=== PATIENT | female | born 1950 | race Caucasian/White ===

== ENCOUNTER → 2016-11-21 | Day surgery (SDC) | payer OTHER ==
[~2016-11-21] VITALS: Ht 152.4 cm; Wt 77.1 kg
[~2016-11-21] MED LIST: ASPIR 8181 MG PO; CALCIUM 600600 M1 PO; HCTZ/LISINOPRIL1 TA1 PO; LISINOPRIL10 M1 PO; MOBIC7.5 MG PO; PAROXETINE HCL20 M1 PO; PAXIL10 MG PO; PERCOCET 5-3251 EACH PO; PROAIR HFA0.09 MG/Ac INH; ROBITUSSIN W/CO10 ML PO; SIMVASTATIN20 MG PO; SYNTHROID88 MCG PO; VANCOMYCIN125 MG/2.5 PO; VITAMIN D32000 I1 PO
--- NOTE | 2016-11-28 18:45 | Operative Report ---
Operative/Inv Procedure Report Surgery Date: 11/21/16 Name of Procedure: Laparoscopic cholecystectomy Pre-Operative Diagnosis: Biliary colic Post-Operative Diagnosis: Same Estimated Blood Loss: scant Surgeon/Director Of Leadership Development: GUERO RICE,DRE Montero PAC Anesthesia: general endotracheal tube IV Fluids: 1800 mls Drains: None Specimens: Gallbladder with stones Complications: None Condition: Excellent stable Operative Indication: Anabel is a 66-year-old female who recently underwent laparoscopic repair of an incarcerated incisional hernia with mesh. She's had several episodes of severe biliary colic most recently leading to an ER visit from which she was able to be discharged home. After recovering from her hernia repair, we have been planning a cholecystectomy which hopefully can be achieved laparoscopically with access superior to the mesh in the epigastrium. It will will require some novel port placements given the mesh. She presents for this cholecystectomy today. Operative/Procedure Note Note: The patient is taken to the operating room placed on the operating table in supine position. Following an awake timeout, placement of Venodyne boots and with her arms extended out to the side she underwent an uneventful induction of general endotracheal anesthesia. She received IV antibiotics and the abdomen was then prepped widely with DuraPrep and draped usual sterile fashion including Ioban. Now local anesthesia was infiltrated in the epigastrium just subxiphoid where a vertical incision was then made and carried down to the fascia. The fascia was opened vertically to expose the preperitoneal fat which was then incised with the Bovie angling slightly to the right again to gain entry through the falciform ligament into the peritoneal cavity. A 10 mm Mayes port was placed and pneumoperitoneum achieved. A 5 mm 30 scope was now inserted and I could see the right adhesions as expected along the margins of the mesh. The right side was free to accept ports placed two 5 mm working ports after infiltrating local anesthetic. A third 5 mm port was now placed to the left of midline lateral to the edge of the mesh. This proved preceded by infiltration of local anesthetic. We did perform some lysis of adhesions around the margins of the upper portion of the mesh so as to have an unobstructed view and ease of the instrumentation. Now the patient was placed in reverse Trendelenburg position. There adhesions of the colon in the right upper quadrant and these were taken down such that we could now visualize the gallbladder. Care was taken in doing so so as not to injure the colon or blood supply. Most of this was done with the hook cautery. The LigaSure was also used. The gallbladder could now be grasped by its dome and delivered up towards the diaphragm. There are adhesions along the gallbladder length and these were taken down again with the hook cautery predominantly. There were no periduodenal adhesions. A second grasper was used on the Escudero's portion of the gallbladder to begin to expose the triangle of Calot. I opened the peritoneum over the triangle and could visualize a lymph node. In the retroperitoneum I could see the general location of the common duct and portal structures and had a sense that there was a short cystic duct. Working close to the gallbladder neck, I freed the lymph node with the cautery allowing exposure of the cystic duct initially. I circumferentially dissected this using a right angle lap mixter and isolated adequate length. Just behind this I could see the artery which I knew would come into better view once the duct was taken. I opened the peritoneum both medially and laterally and freed the lower third of the gallbladder had reasonable critical view of safety area I clipped the cystic duct 2 on the patient's side and one on the specimen side and then divided. This required the larger clips spanned the duct adequately. The artery was now easily in view and isolated it with the right angle instrument as well and then clipped it 2 on the patient's side one on the specimen side and divided it using the standard 5 mm clip manager of broadcast content. Now the gallbladder was dissected off of the liver bed. In the lower third there was a reasonable plane of dissection with subareolar tissue and no violation of the liver capsule. The middle third there was more inflammatory change between the wall of the gallbladder and the liver but we are able to navigate this without any significant violations in the liver capsule or the gallbladder and the upper third of the gallbladder came away or easily once again. Prior to severing the final communication between liver and gallbladder I inspected the liver bed and all clips and there was no bile leakage and no bleeding. The last attachments were taken down and the gallbladder placed in the extraction bag and removed from the epigastric port. The pneumo was reestablished and I once again checked the liver bed and all the clips all and all points of dissection. There is no bleeding or bile leakage. I irrigated the right upper quadrant Nowling the patient supine out of reverse Trendelenburg all the irrigant return clear as we aspirated the fluid. The ports were now removed under direct vision and released the pneumo completely. I closed the fascia at the xiphoid area with a 0 Maxon [id number] suture. The subcutaneous space was reapproximated with interrupted 3-0 Vicryl suture followed by 4-0 Monocryl running subcuticular skin closure. Steri-Strips 4 x 4's and OpSite were placed. Patient tolerated this well was taken to the recovery room extubated in stable condition all sponge needle and instrument count confirmed as correct 2 completion of the case. Findings: Adhesions at margins of mesh as expected. Right upper quadrant with adhesions to colon and liver and gallbladder. Discharge Disposition: PACU
== END ==
LOC: STS 01:43
DX: K80.10 Calculus of gallbladder with chronic cholecystitis without obstruction (principal); K66.0 Peritoneal adhesions (postprocedural) (postinfection); I10 Essential (primary) hypertension; E78.00 Pure hypercholesterolemia, unspecified; I34.2 Nonrheumatic mitral (valve) stenosis; Z79.82 Long term (current) use of aspirin
CPT/HCPCS: 88304; J0131; J1100; J2250; J2405